=== PATIENT | female | born 1950 | race Caucasian/White ===

== ENCOUNTER → 2023-02-11 | Outpatient (CLI) | payer MEDICARE, OTHER ==
[~2023-02-11] VITALS: Ht 170.2 cm; Wt 128.8 kg
[~2023-02-11] MED LIST: ADENOSINE 108 MG in GIVE UN-DILUTED 0 ML IV ONE
== END | disposition home or self-care (01) ==
LOC: XYW 08:29
PROVIDERS: ATTEND Internal Medicine
DX: R07.89 Other chest pain (principal)
CPT/HCPCS: 78452; 93017; A9500; J0153

== ENCOUNTER 2023-06-16 06:48 | Day surgery (SDC) | payer MEDICARE, OTHER ==
[~2023-06-16] VITALS: Ht 170.2 cm; Wt 129.3 kg
[~2023-06-16 06:48] MED LIST changes: -ADENOSINE 108 MG in GIVE UN-DILUTED 0 ML IV ONE; +ASCO100076 PO; +ASPI-543 PO; +BIOT10CA PO; +CHOL1CAP59 PO; +CINN500C7 PO; +FENO145T27 PO; +INSU100I4 SC; +INSU100I70 SC; +LEVO25TA49 PO; +ROSU40TA81 PO; +SENN-205 PO; +ZINC50TA20 PO; +[UNRECOGNIZED DRUG - CODE] PO; +[UNRECOGNIZED DRUG - CODE] PO
[2023-06-16] MEDS ORDERED: LIDOCAINE 2%HCL (LOCAL ANESTH.) INJ 20ML MDV ONE ×2 (08:34→12:06)
[2023-06-16] MEDS ORDERED: IODIXANOL 320MG/ML 100ML BTL IV ONE ×2 (08:34→12:06)
[2023-06-16] MEDS ORDERED: HEPARIN IN NS 1000Units/500mL 1,500 ML ONE (08:35)
[2023-06-16] MEDS ORDERED: fentaNYL CITRATE 100 MCG/2 ML VL ONE (12:05)
[2023-06-16] MEDS ORDERED: HEPARIN SODIUM (PORCINE) 5000 UNITS/ML 1ML VIAL ONE (12:05)
[2023-06-16] MEDS ORDERED: VERAPAMIL 2.5MG/ML INJ 2ML VIAL IV ONE (12:05)
[2023-06-16] MEDS ORDERED: ANGIOMAX 250 MG VIAL IV ONE (12:05)
[2023-06-16] MEDS ORDERED: MIDAZOLAM HCL 2MG/2ML 2ml VIAL (1mg/ml) ONE (12:06)
[2023-06-16] MEDS ORDERED: SODIUM CHL 0.9% 0 ML ONE (12:06)
== END 2023-06-16 15:35 | disposition home or self-care (01) ==
LOC: CATH 06:48
PROVIDERS: ATTEND Internal Medicine
DX: I25.10 Atherosclerotic heart disease of native coronary artery without angina pectoris (principal); R06.09 Other forms of dyspnea; I10 Essential (primary) hypertension; E78.5 Hyperlipidemia, unspecified; Z79.899 Other long term (current) drug therapy; Z98.890 Other specified postprocedural states
CPT/HCPCS: 93458; 93571; C1769; C1887; C1894; J1644; J2250; J3010; J7030; Q9967; 99152; 99153